=== PATIENT | male | born 1965 | race Caucasian/White ===

== ENCOUNTER 2020-06-08 11:47 | Emergency (ER) | payer OTHER ==
[~2020-06-08] VITALS: Ht 177.8 cm; Wt 95.3 kg
[~2020-06-08 11:47] MED LIST: ACETAMINOPHEN325 M1 PO; METHOCARBAMOL500 MG PO; NAPR500T14 PO; OMEPRAZOLE20 MG PO; [UNRECOGNIZED DRUG - OTHER] PO
[2020-06-08] MEDS ORDERED: [UNRECOGNIZED DRUG - OTHER] (11:59)
[2020-06-08] MEDS ORDERED: KETO10TA2 PO (15:27)
[2020-06-08] MEDS ORDERED: NORFLEX100MG PO (15:27)
== END 2020-06-08 15:34 | disposition home or self-care (01) ==
LOC: ER 11:47
DX: S60.222A Contusion of left hand, initial encounter (principal); S30.0XXA Contusion of lower back and pelvis, initial encounter; W18.09XA Striking against other object with subsequent fall, initial encounter; Y93.89 Activity, other specified; Y92.69 Other specified industrial and construction area as the place of occurrence of the external cause; Y99.8 Other external cause status